=== PATIENT | female | born 1965 | race Caucasian/White ===

== ENCOUNTER 2022-09-22 11:18 | Outpatient (AMB) | payer OTHER, SELFPAY ==
--- NOTE | 2022-09-22 11:45 | A.SPINEOV_ITS ---
Intake Intake Visit Reasons: second opinion Intake Note: Ms. Messer is here today for a second opinion. MRI done @ [facility]. Supervisor Paper Coating Required: No Assessment & Plan Assessment & Plan (1) Cervical radiculopathy due to degenerative joint disease of spine: Code(s): M47.22 - Other spondylosis with radiculopathy, cervical region Plan Dear colleague On 09/22/2022, I saw for a 2nd opinion your patient Maria C Messer with a chief complaint of pain in neck and bilateral arms. 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 The knuckle of her index finger is always sensitive. The pain is constantly 3/10 with periods where the pain increases significantly. She denies weakness. She denies dropping objects. She saw a physician podiatry assistant SAMIRA or referred her for physical therapy. She is scheduled to see Dr. Estrada in November. The physical therapy is giving her mild improvement. PMH: Hypertension Social history: Nonsmoker Medications: None Allergies: Penicillin Physical Exam: Pleasant female. Spurling test produces radiating pain down her left arm. Sensory exam is intact. Motor exam is 5 5 throughout. No pathological reflexes. Tinel is negative. Radiological Studies: MRI done at [facility] shows multilevel degenerative disc disease C4-5, C5-C6 and C6-C7 with bilateral severe C6 foraminal stenosis and moderate left C5 and C7 stenosis. No spinal cord compression. An x-ray of the cervical spine shows degenerative disc disease C5-6 and C6-C7. No signs of instability. Impression/Plan: This 57-year-old female is clinically suffering from a bilateral C6 radiculopathy. In the C5-C6 level is also the only level on the MRI dad has bilateral abnormalities. She is currently doing conservative treatment but we had an extensive discussion about surgical intervention to address her symptoms if conservative treatment failed. The range of surgeries go from her 3 level anterior cervical diskectomy and fusion to only addressing the symptomatic C5-C6 level. I think putting her through a three-level anterior diskectomy fusion will address her symptoms but also will put her at a very high risk of more surgeries in the future for additional disc degeneration. I would opt to only treat the symptomatic level with an artificial disc. This allows me to add another artificial disc in the future if another symptom level becomes symptomatic. In my opinion, this surgical approach would put the patient at lesser risk of needing surgery to the other levels or developing more adjacent degenerative disc disease. She will revisit me after the consult with the other surgeon. Thank you for allowing me to participate in your patients care. total time spent was 50 minutes in counseling ,coordination of plan, personal review of imaging, surgical decision making and subsequent plan Ishan Fox MD, PhD Spine Fellowship Trained Neurosurgeon Director, [facility] Coding Level of Care Code New Pt Level 4 (90462) Diagnoses Cervical radiculopathy due to degenerative joint disease of spine M47.22
== END 2022-09-22 12:44 | disposition home or self-care (01) ==
PROVIDERS: PCP Hospitalist; Visit Provider Neurological Surgery
DX: M47.22 Other spondylosis with radiculopathy, cervical region (principal)
CPT/HCPCS: 99204

== ENCOUNTER → 2022-09-22 11:18 | Outpatient (BNVA) | payer OTHER, SELFPAY | PROVIDERS: PCP Hospitalist; Visit Provider Neurological Surgery ==